=== PATIENT | female | born 1970 | race African-American/Black ===

== ENCOUNTER 2017-03-08 18:35 | Emergency (ER) | payer OTHER ==
--- NOTE | 2017-03-08 19:16 | RADIOLOGY REPORT (SQ) ---
EXAM DESCRIPTION: CHEST SINGLE VIEW COMPLETED DATE/TIME: 03/08/2017 7:09 pm REASON FOR STUDY: chest pain COMPARISON: 07/28/2016 EXAM PARAMETERS: NUMBER OF VIEWS: One view. TECHNIQUE: Single frontal radiographic view of the chest acquired. RADIATION DOSE: NA LIMITATIONS: None. FINDINGS: LUNGS AND PLEURA: No opacities, masses or pneumothorax. No pleural effusion. MEDIASTINUM AND HILAR STRUCTURES: No masses. Contour normal. HEART AND VASCULAR STRUCTURES: Heart normal in size. Normal vasculature. BONES: No acute findings. HARDWARE: None in the chest. OTHER: No other significant finding. IMPRESSION: NO ACUTE RADIOGRAPHIC FINDING IN THE CHEST. TECHNICAL DOCUMENTATION: JOB ID: [id number]
[2017-03-08 19:17] LABS: ABSOLUTE EOSINOPHILS # (AUTO) 0.1 10^3/uL (0.0-0.6); ABSOLUTE MONOCYTES (AUTO) 0.6 10^3/uL (0.1-1.4); ABSOLUTE NEUT (AUTO) 5.5 10^3/uL (1.7-8.2); BASOPHILS % (AUTO) 0.5 % (0-2); EOSINOPHILS % (AUTO) 1.3 % (0-6); HEMATOCRIT 45.1 % (36.0-47.0); HGB HCT DIFFERENCE -0.1; LYMPHOCYTES % (AUTO) 24.2 % (13-45); MEAN CORPUSCULAR HGB CONC 33.2 g/dL (32.0-36.0); MEAN CORPUSCULAR VOLUME 109 fl (80-97); MONOCYTES % (AUTO) 7.6 % (3-13); RED BLOOD COUNT 4.15 10^6/uL (3.72-5.28); RED CELL DISTRIBUTION WIDTH 14.1 % (11.5-14.0); SEGMENTED NEUTROPHILS % (AUTO) 66.4 % (42-78); WHITE BLOOD COUNT 8.3 10^3/uL (4.0-10.5)
[2017-03-08 19:44] LABS: ALANINE AMINOTRANSFERASE 92 U/L (9-52); ALBUMIN 4.7 g/dL (3.5-5.0); ALKALINE PHOSPHATASE 71 U/L (38-126); ANION GAP 13 (5-19); ASPARTATE AMINO TRANSFERASE 148 U/L (14-36); BILIRUBIN,DIRECT 0.5 mg/dL (0.0-0.4); BILIRUBIN,TOTAL 1.5 mg/dL (0.2-1.3); BLOOD UREA NITROGEN 7 mg/dL (7-20); CARBON DIOXIDE 23 mmol/L (22-30); CHLORIDE 103 mmol/L (98-107); GLUCOSE 88 mg/dL (75-110); LIPASE 95.6 U/L (23-300); POTASSIUM 4.1 mmol/L (3.6-5.0); SODIUM 139.1 mmol/L (137-145); TOTAL PROTEIN 8.7 g/dL (6.3-8.2)
[2017-03-08 20:08] LABS: CALCIUM 13.4 mg/dL (8.4-10.2)
--- NOTE | 2017-03-08 20:20 | ER Document Report ---
ED General - General Chief Complaint: Chest Pain Stated Complaint: CHEST PAIN Time Seen by Provider: 03/08/17 19:17 Notes: Patient is a 46-year-old female with past medical history of hypertension, no prior cardiac history, no history of DVT or pulmonary embolus, active smoker who presents with 2 weeks of intermittent chest pain. Does describe it as episodes of chest pain over the left side of her chest wall that are a stabbing , aching pain. States that these episodes of pain tend to be triggered when she is agitated about something. The pain does resolve on its own. She is chest pain-free at the time of my assessment. She has not seen her primary care doctor regarding today's concerns. Denies any associated nausea, vomiting , diaphoresis or shortness of breath. TRAVEL OUTSIDE OF THE [place] IN LAST 30 DAYS: No - Related Data Allergies/Adverse Reactions: erythromycin base [Erythromycin Base] Allergy (Verified 04/18/14 06:04) Past Medical History - General Information source: Patient - Social History Smoking Status: Never Smoker Chew tobacco use (# tins/day): No Drug Abuse: None Lives with: Spouse/Significant other Family History: Reviewed & Not Pertinent Patient has suicidal ideation: No Patient has homicidal ideation: No - Past Medical History Cardiac Medical History: Reports: Hx Hypertension Neurological Medical History: Reports: Hx Migraine Renal/ Medical History: Denies: Hx Peritoneal Dialysis Psychiatric Medical History: Reports: Hx Depression - Immunizations Hx Diphtheria, Pertussis, Tetanus Vaccination: No Review of Systems - Review of Systems Notes: Constitutional: Negative for fever. HENT: Negative for sore throat. Eyes: Negative for visual changes. Cardiovascular: Positive for chest pain. Respiratory: Negative for shortness of breath. Gastrointestinal: Negative for abdominal pain, vomiting or diarrhea. Genitourinary: Negative for dysuria. Musculoskeletal: Negative for back pain. Skin: Negative for rash. Neurological: Negative for headaches, weakness or numbness. 10 point ROS negative except as marked above and in HPI. Physical Exam - Vital signs Vitals: Temp Pulse Resp BP Pulse Ox 97.8 F 101 H 20 150/90 H 97 03/08/17 18:53 03/08/17 18:53 03/08/17 18:53 03/08/17 18:53 03/08/17 18:53 Notes: PHYSICAL EXAMINATION: GENERAL: Well-appearing, well-nourished and in no acute distress. HEAD: Atraumatic, normocephalic. EYES: Pupils equal round and reactive to light, extraocular movements intact, sclera anicteric, conjunctiva are normal. ENT: nares patent, oropharynx clear without exudates. Moist mucous membranes. NECK: Normal range of motion, supple without lymphadenopathy LUNGS: Breath sounds clear to auscultation bilaterally and equal. No wheezes rales or rhonchi. HEART: Regular rate and rhythm without murmurs ABDOMEN: Soft, nontender, normoactive bowel sounds. No guarding, no rebound. No masses appreciated. EXTREMITIES: Normal range of motion, no pitting or edema. No cyanosis. NEUROLOGICAL: No focal neurological deficits. Moves all extremities spontaneously and on command. PSYCH: Normal mood, normal affect. SKIN: Warm, Dry, normal turgor, no rashes or lesions noted. Course - Re-evaluation Re-evalutation: 03/08/17 20:15 Presentation of chest pain in an otherwise well appearing patient. Low clinical suspicion for ACS given clinical history, exam, EKG without ST elevations or depressions, and negative initial troponin. HEART score less than or equal to 3. PE also seems unlikely given clinical history, absence of tachycardia or dyspnea (initial documented HR is not accurate, EKG HR 73 and 84 at time of my assessment). Patient is PERC criteria negative. CXR without evidence of pneumothorax or pneumonia. No widened mediastinum. Aortic dissection also seems unlikely given history, symmetric pulses, CXR, and vitals. HEART Score: History:0 EC Age:1 Risk Factors:1 Troponin:0 Total: 2 2330- Second troponin remains negative. Final assessment: Chest pain in a patient without evidence of cardiac or other serious etiology on workup today. I discussed with patient that, based on their age, risk factors and emergency department testing today, the likelihood that their symptoms are related to a heart attack is very low (estimated risk of heart attack or over the next 30 days of less than 1%). The patient demonstrates decision making capacity and has verbalized an understanding of these risks to me. Based on this, the patient has chosen to follow-up as an outpatient. Usual chest pain return precautions reviewed. The patient states understanding and agreement with this plan. - Vital Signs Vital signs: Temp Pulse Resp BP Pulse Ox 97.8 F 101 H 23 H 128/89 H 89 L 03/08/17 18:53 03/08/17 18:53 03/08/17 23:31 03/08/17 23:31 03/08/17 23:31 - Laboratory Result Diagrams: 03/08/17 19:09 03/08/17 19:09 Laboratory results interpreted by me: 03/08/17 03/08/17 19:09 19:09 MCV 109 H MCH 36.0 H RDW 14.1 H Calcium 13.4 H* Total Bilirubin 1.5 H Direct Bilirubin 0.5 H AST 148 H ALT 92 H Total Protein 8.7 H - Diagnostic Test Radiology reviewed: Image reviewed, Reports reviewed Radiology results interpreted by me: 03/08/17 20:19 Chest x-ray: No wide mediastinum, pneumothorax or infiltrate - EKG Interpretation by Me Additional EKG results interpreted by me: 03/09/17 03:26 Normal sinus rhythm. Rate 73. No ST elevations or depressions. QTC is 388. Discharge - Discharge Clinical Impression: Hypercalcemia Chest pain Qualifiers: Chest pain type: unspecified Qualified Code(s): R07.9 - Chest pain, unspecified Condition: Good Disposition: HOME, SELF-CARE Additional Instructions: You were seen today for chest pain. The exact cause of your pain is unclear. However, based on your cardiac enzyme testing, chest x-ray, and EKG it does not appear that it is from an immediately life-threatening cause at this time. Although your testing here is normal is critical that you follow-up with your primary care physician for continued evaluation of this chest pain and possible stress testing. I recommended you see your physician within the next 24-48 hours to be evaluated for consideration of a stress test. Please return to emergency department immediately if you have worsening of your chest pain, shortness of breath, vomiting, become unable to exert yourself due to pain or difficulty breathing, you pass out, or have any pain that radiates into your arms, jaw, or back. Please also return if you have any additional symptoms that are concerning to you. Please also follow-up with your primary care doctor regarding your chronically elevated calcium level.
[2017-03-08 23:39] VITALS: BP 128/89
--- NOTE | 2017-03-08 23:44 | EKG REPORT ---
SEVERITY:- BORDERLINE ECG - SINUS RHYTHM BORDERLINE R WAVE PROGRESSION, ANTERIOR LEADS : Confirmed by: Monica Garcia 08-Mar-2017 23:44:07
--- NOTE | 2017-03-08 23:45 | EKG REPORT ---
SEVERITY:- BORDERLINE ECG - SINUS RHYTHM LOW VOLTAGE IN FRONTAL LEADS BORDERLINE R WAVE PROGRESSION, ANTERIOR LEADS : Confirmed by: Monica Garcia 08-Mar-2017 23:44:18
== END 2017-03-08 23:55 | disposition home or self-care (01) ==
LOC: ER 18:35
DX: E83.52 Hypercalcemia (principal); R07.9 Chest pain, unspecified; I10 Essential (primary) hypertension; Z88.3 Allergy status to other anti-infective agents
CPT/HCPCS: 36415; 71010; 80053; 83690; 84484; 85025; 93005; 93010; 99285

== ENCOUNTER 2017-10-24 20:33 | Emergency (ER) | payer OTHER ==
[2017-10-24 20:52] VITALS: BP 159/101
[2017-10-24] MEDS ORDERED: ACETAMINOPHEN 325 MG TABLET PO ONE (23:31)
--- NOTE | 2017-10-24 23:32 | ER Document Report ---
HPI - HPI Patient complains to provider of: Fever, cough Pain Level: 4 Context: Patient is a 47-year-old female who comes emergency department for chief complaint of 1 week of cold symptoms, she states she feels like she is getting worse, she is coughing up brownish and whitish sputum, she is beginning to run fevers and have chills. She denies shortness of breath although she states she felt like she was wheezing intermittently. She denies sinus pain, significant congestion, states her throat is only mildly sore. She smokes intermittently, she denies any daily medications. LMP within the past month. - CONSTITUTIONAL Constitutional: REPORTS: Fever, Chills - NEURO Neurology: REPORTS: Headache - CARDIOVASCULAR Cardiovascular: REPORTS: Chest pain - RESPIRATORY Respiratory: REPORTS: Coughing - REPRODUCTIVE Reproductive: DENIES: : Past Medical History - General Information source: Patient - Social History Smoking Status: Current Every Day Smoker Chew tobacco use (# tins/day): No Smoking Education Provided: Yes - <3 min Frequency of alcohol use: Social Drug Abuse: None Lives with: Family Family History: Reviewed & Not Pertinent Patient has suicidal ideation: No Patient has homicidal ideation: No - Past Medical History Cardiac Medical History: Reports: Hx Hypertension Neurological Medical History: Reports: Hx Migraine Renal/ Medical History: Denies: Hx Peritoneal Dialysis Psychiatric Medical History: Reports: Hx Depression - Immunizations Hx Diphtheria, Pertussis, Tetanus Vaccination: No Vertical Provider Document - INFECTION CONTROL TRAVEL OUTSIDE OF THE [place] IN LAST 30 DAYS: No - HEENT HEENT: Atraumatic, Normal ENT Exam, Normocephalic - NECK Neck: Normal Inspection - RESPIRATORY Respiratory: negative: Breath Sounds Normal - A few scattered coarse breath sounds, no overt wheezing, rales, or rhonchi. No tachypnea or labored breathing O2 Sat by Pulse Oximetry: 99 - CARDIOVASCULAR Cardiovascular: Regular Rate, Regular Rhythm - GI/ABDOMEN Gastrointestinal: Abdomen Soft, Abdomen Non-Tender - BACK Back: Normal Inspection - MUSCULOSKELETAL/EXTREMETIES Musculoskeletal/Extremeties: MAEW, FROM, Non-Tender - NEURO Level of Consciousness: Awake, Alert, Appropriate - DERM Integumentary: Warm, Dry, No Rash Course - Re-evaluation Re-evalutation: Chest x-ray unremarkable, however patient has had cold symptoms for a week, she now has some scattered coarse breath sounds on exam, developing fever, worsening cough, but no wheezing, rales, or hypoxia. No respiratory distress. Concern is for developing pneumonia. Patient will be covered for this. She states that she had some wheezing intermittently before, she was provided with prednisone. Discussed follow-up, smoking cessation, return precautions in detail. Patient states satisfaction and agreement with plan. Unfortunately vital signs were not repeated before discharge and I was not notified, however on my reexamination patient was unchanged from prior except that she no longer had any complaints except for an occasional congested cough. - Vital Signs Vital signs: Temp Pulse Resp BP Pulse Ox 100.7 F H 100 16 159/101 H 99 10/24/17 20:50 10/24/17 20:50 10/24/17 20:50 10/24/17 20:50 10/24/17 20:50 Discharge - Discharge Clinical Impression: Cough Fever Qualifiers: Fever type: unspecified Qualified Code(s): R50.9 - Fever, unspecified Condition: Stable Disposition: HOME, SELF-CARE Additional Instructions: Your x-ray does not show any concerning findings, but your examination and symptoms are consistent with a developing pneumonia. Take doxycycline antibiotic as directed, take prednisone as directed, take Tessalon if needed for cough, take ibuprofen or Tylenol for fever, drink plenty fluids and rest. Follow-up with primary care. Stop smoking. Return if you worsen including difficulty breathing, spiking fever, etc. Prescriptions: Benzonatate [Tessalon Perle 100 mg Capsule] 100 mg PO Q8HP PRN #20 cap PRN Reason: Doxycycline Hyclate 100 mg PO BID #14 capsule Prednisone [Deltasone 10 mg Tablet] 10 mg PO ASDIR PRN #21 tablet PRN Reason: Forms: Return to Work
--- NOTE | 2017-10-25 00:33 | RADIOLOGY REPORT (SQ) ---
EXAM DESCRIPTION: CHEST PA/LAT CLINICAL HISTORY: 47 years, Female, fever, worsening cough COMPARISON: 03/08/2017. FINDINGS: Normal lung volume, clear parenchyma, normal cardiac silhouette, mild osteoarthritis, and mild dextroconvexity. IMPRESSION: No acute cardiopulmonary findings.
[2017-10-25] MEDS ORDERED: DOXYCYCLINE HYCLATE 100 MG TABLET PO ONE (01:03)
[2017-10-25] MEDS ORDERED: BENZONATATE 100 MG CAPSULE PO ONE (01:04)
== END 2017-10-25 01:35 | disposition home or self-care (01) ==
LOC: ER 20:33
DX: R50.9 Fever, unspecified (principal); R05 Cough; J02.9 Acute pharyngitis, unspecified; F17.200 Nicotine dependence, unspecified, uncomplicated
CPT/HCPCS: 71046; 99283

== ENCOUNTER 2018-01-12 17:42 | Emergency (ER) | payer OTHER ==
[2018-01-12] MEDS ORDERED: ASPIRIN 81 MG TABLET, CHEWABLE PO ONE (18:33)
[2018-01-12 19:04] LABS: ABSOLUTE LYMPHOCYTES (AUTO) 1.5 10^3/uL (0.5-4.7); ABSOLUTE MONOCYTES (AUTO) 0.6 10^3/uL (0.1-1.4); BASOPHILS % (AUTO) 0.5 % (0-2); EOSINOPHILS % (AUTO) 0.6 % (0-6); HEMATOCRIT 42.9 % (36.0-47.0); HEMOGLOBIN 14.4 g/dL (12.0-15.5); LYMPHOCYTES % (AUTO) 18.4 % (13-45); MEAN CORPUSCULAR HEMOGLOBIN 34.5 pg (27.0-33.4); MEAN CORPUSCULAR HGB CONC 33.6 g/dL (32.0-36.0); MEAN CORPUSCULAR VOLUME 103 fl (80-97); MONOCYTES % (AUTO) 6.8 % (3-13); PLATELET COUNT 316 10^3/uL (150-450); RED BLOOD COUNT 4.18 10^6/uL (3.72-5.28); RED CELL DISTRIBUTION WIDTH 14.7 % (11.5-14.0); SEGMENTED NEUTROPHILS % (AUTO) 73.7 % (42-78); TOTAL CELLS COUNTED % (AUTO) 100 %; WHITE BLOOD COUNT 8.2 10^3/uL (4.0-10.5)
--- NOTE | 2018-01-12 19:04 | RADIOLOGY REPORT (SQ) ---
EXAM DESCRIPTION: CHEST SINGLE VIEW COMPLETED DATE/TIME: 01/12/2018 6:54 pm REASON FOR STUDY: chest pain COMPARISON: 10/25/2017 EXAM PARAMETERS: NUMBER OF VIEWS: One view. TECHNIQUE: Single frontal radiographic view of the chest acquired. RADIATION DOSE: NA LIMITATIONS: None. FINDINGS: LUNGS AND PLEURA: No opacities, masses or pneumothorax. No pleural effusion. MEDIASTINUM AND HILAR STRUCTURES: No masses. Contour normal. HEART AND VASCULAR STRUCTURES: Heart normal in size. Normal vasculature. BONES: No acute findings. HARDWARE: None in the chest. OTHER: No other significant finding. IMPRESSION: NO ACUTE RADIOGRAPHIC FINDING IN THE CHEST. TECHNICAL DOCUMENTATION: JOB ID: [id number] [employer]- All Rights Reserved Reading location - IP/workstation name: [email or web address]
[2018-01-12 19:19] LABS: ALANINE AMINOTRANSFERASE 31 U/L (9-52); ALBUMIN 4.4 g/dL (3.5-5.0); ALKALINE PHOSPHATASE 54 U/L (38-126); ANION GAP 14 (5-19); ASPARTATE AMINO TRANSFERASE 31 U/L (14-36); BILIRUBIN,DIRECT 0.3 mg/dL (0.0-0.4); BILIRUBIN,TOTAL 0.8 mg/dL (0.2-1.3); BLOOD UREA NITROGEN 7 mg/dL (7-20); CALCIUM 11.4 mg/dL (8.4-10.2); CARBON DIOXIDE 23 mmol/L (22-30); CHLORIDE 103 mmol/L (98-107); CREATINE KINASE 92 U/L (30-135); GLUCOSE 96 mg/dL (75-110); POTASSIUM 4.1 mmol/L (3.6-5.0); SODIUM 140.1 mmol/L (137-145); TOTAL PROTEIN 7.9 g/dL (6.3-8.2)
[2018-01-12 19:31] LABS: CREATINE KINASE MB 1.22 ng/mL (<4.55)
[2018-01-12 19:32] LABS: TROPONIN I < 0.012 ng/mL
--- NOTE | 2018-01-12 19:45 | ER Document Report ---
ED General - General Chief Complaint: Chest Pain Stated Complaint: CHEST PAIN Time Seen by Provider: 01/12/18 18:43 Mode of Arrival: Ambulatory Information source: Patient Notes: 47-year-old female history of anxiety panic attacks presents with complaints of sudden episode of left facial left arm numbness associated with palpitations. Patient notes she has panic attacks often notes the symptoms worsen when she got to work and that she is under a lot of stress patient notes symptoms have since resolved TRAVEL OUTSIDE OF THE [place] IN LAST 30 DAYS: No - HPI Onset: Just prior to arrival Onset/Duration: Sudden Quality of pain: Achy Severity: Mild Pain Level: 1 Associated symptoms: Weakness, Other Exacerbated by: Denies Relieved by: Denies Similar symptoms previously: No Recently seen / treated by doctor: No - Related Data Allergies/Adverse Reactions: erythromycin base [Erythromycin Base] Allergy (Verified 01/12/18 18:44) Past Medical History - Social History Smoking Status: Current Every Day Smoker Cigarette use (# per day): Yes Chew tobacco use (# tins/day): No Smoking Education Provided: No Frequency of alcohol use: Heavy Drug Abuse: Marijuana Family History: Reviewed & Not Pertinent Patient has suicidal ideation: No Patient has homicidal ideation: No - Past Medical History Cardiac Medical History: Reports: Hx Hypertension - has not taken meds in months Neurological Medical History: Reports: Hx Migraine Renal/ Medical History: Denies: Hx Peritoneal Dialysis Psychiatric Medical History: Reports: Hx Depression - Immunizations Hx Diphtheria, Pertussis, Tetanus Vaccination: No Review of Systems - Review of Systems Notes: REVIEW OF SYSTEMS: CONSTITUTIONAL : Denies fever, chills, or sweats. Denies recent illness. EENT: Denies eye, ear, throat, or mouth pain or symptoms. Denies nasal or sinus congestion or discharge. Denies throat, tongue, or mouth swelling or difficulty swallowing. CARDIOVASCULAR: Admits to chest pain RESPIRATORY: Denies cough, cold, or chest congestion. Denies shortness of breath, difficulty breathing, or wheezing. GASTROINTESTINAL: Denies abdominal pain or distention. Denies nausea, vomiting , or diarrhea. Denies blood in vomitus, stools, or per rectum. Denies black, tarry stools. Denies constipation. GENITOURINARY: Denies difficulty urinating, painful urination, burning, frequency, blood in urine, or discharge. FEMALE GENITOURINARY: Denies vaginal bleeding, heavy or abnormal periods, irregular periods. Denies vaginal discharge or odor. MUSCULOSKELETAL: Denies back or neck pain or stiffness. Denies joint pain or swelling. SKIN: Denies rash, lesions or sores. HEMATOLOGIC : Denies easy bruising or bleeding. LYMPHATIC: Denies swollen, enlarged glands. NEUROLOGICAL: Admits to numbness sensation left side PSYCHIATRIC: Admits to stress and anxiety ALL OTHER SYSTEMS REVIEWED AND NEGATIVE. PHYSICAL EXAMINATION: GENERAL: Well-appearing, well-nourished and in no acute distress. HEAD: Atraumatic, normocephalic. EYES: Pupils equal round and reactive to light, extraocular movements intact, conjunctiva are normal. ENT: Nares patent, oropharynx clear without exudates. Moist mucous membranes. NECK: Normal range of motion, supple without lymphadenopathy LUNGS: Breath sounds clear to auscultation bilaterally and equal. No wheezes rales or rhonchi. HEART: Regular rate and rhythm without murmurs ABDOMEN: Soft, nontender, nondistended abdomen. No guarding, no rebound. No masses appreciated. Female : deferred Musculoskeletal: Normal range of motion, no pitting or edema. No cyanosis. NEUROLOGICAL: Cranial nerves grossly intact. Normal speech, normal gait. Normal sensory, motor exams PSYCH: Extremely anxious SKIN: Warm, Dry, normal turgor, no rashes or lesions noted. Dictation was performed using [employer] voice recognition software Physical Exam - Vital signs Vitals: Temp Pulse Resp BP Pulse Ox 99.5 F 78 18 169/105 H 99 01/12/18 18:09 01/12/18 18:09 01/12/18 18:09 01/12/18 18:09 01/12/18 18:09 Course - Re-evaluation Re-evalutation: 01/12/18 19:45 Patient notes when the symptoms occurred she started having tingling sensations started shaking, she started to have palpitations. Symptoms are most consistent with a panic attack, nonetheless cardiac workup CT of the head is pending 01/13/18 02:06 CT imaging lab work noted no significant abnormality, patient believes her symptoms are related to a panic attack, I will treat her as such however I have explained that while anxiety panic attack appears to be the source of her symptoms that she must follow-up with neurology for further evaluation possible TIA which we would not be able to see on a CT imaging. Patient states she understands and will return if there are any other After performing a Medical Screening Examination, I estimate there is LOW risk for ACUTE GLAUCOMA, TEMPORAL ARTERITIS, MENINGITIS, INCRANIAL HEMORRHAGE, or ISCHEMIC STROKE thus I consider the discharge disposition reasonable. I have reevaluated this patient multiple times and no significant life threatening changes are noted. The patient and I have discussed the diagnosis and risks, and we agree with discharging home with close follow-up with the understanding that symptoms and presentations can change. We also discussed returning to the Emergency Department immediately if new or worsening symptoms occur. We have discussed the symptoms which are most concerning (e.g., changing or worsening symptoms, new numbness or weakness, vomiting, fever) that necessitate immediate return. - Vital Signs Vital signs: Temp Pulse Resp BP Pulse Ox 99.5 F 78 22 H 172/100 H 94 01/12/18 18:09 01/12/18 18:09 01/12/18 21:01 01/12/18 21:00 01/12/18 20:31 - Laboratory Result Diagrams: 01/12/18 18:42 01/12/18 18:42 Laboratory results interpreted by me: 01/12/18 01/12/18 18:42 18:42 MCV 103 H MCH 34.5 H RDW 14.7 H Calcium 11.4 H - Diagnostic Test Radiology reviewed: Image reviewed - CT head without contrast notes no acute abnormality, Reports reviewed Discharge - Discharge Clinical Impression: Panic attack HTN (hypertension) Qualifiers: Hypertension type: essential hypertension Qualified Code(s): I10 - Essential ( primary) hypertension Condition: Stable Disposition: HOME, SELF-CARE Instructions: Panic Attack ([facility]) Referrals: NICHOLAS DALY MD [EMERITUS] - Follow up tomorrow
--- NOTE | 2018-01-12 20:25 | RADIOLOGY REPORT (SQ) ---
EXAM DESCRIPTION: CT HEAD WITHOUT COMPLETED DATE/TIME: 01/12/2018 7:57 pm REASON FOR STUDY: left facial numbness COMPARISON: None. TECHNIQUE: Axial images acquired through the brain without intravenous contrast. Images reviewed wi th bone, brain and subdural windows. Additional sagittal and coronal reconstructions were generated. Images stored on PACS. All CT scanners at this facility use dose modulation, iterative reconstruction, and/or weight based d osing when appropriate to reduce radiation dose to as low as reasonably achievable (ALARA). [facility]: Dose Right [facility]: CareDose [facility]: Dose Right [facility]: Teradose 4D [facility]: Smart Gremln RADIATION DOSE: CT Rad equipment meets quality standard of care and radiation dose reduction techniq ues were employed. CTDIvol: 53.2 mGy. DLP: 1017 mGy-cm. mGy. LIMITATIONS: None. FINDINGS: VENTRICLES: Normal size and contour. CEREBRUM: No masses. No hemorrhage. No midline shift. No evidence for acute infarction. Normal gra y/white matter differentiation. No areas of low density in the white matter. CEREBELLUM: No masses. No hemorrhage. No alteration of density. No evidence for acute infarction. EXTRAAXIAL SPACES: No fluid collections. No masses. ORBITS AND GLOBE: No intra- or extraconal masses. Normal contour of globe without masses. CALVARIUM: No fracture. PARANASAL SINUSES: No fluid or mucosal thickening. SOFT TISSUES: No mass or hematoma. OTHER: No other significant finding. IMPRESSION: NORMAL BRAIN CT WITHOUT CONTRAST. EVIDENCE OF ACUTE STROKE: NO. COMMENT: Quality ID # [id number]: Final reports with documentation of one or more dose reduction techniques (e.g., Automated exposure control, adjustment of the mA and/or kV according to patient size, use of iterative reconstruction technique) TECHNICAL DOCUMENTATION: JOB ID: [id number] [employer]- All Rights Reserved Reading location - IP/workstation name: [email or web address]
[2018-01-12 21:05] VITALS: BP 172/100
--- NOTE | 2018-01-12 23:40 | EKG REPORT ---
SEVERITY:- BORDERLINE ECG - SINUS RHYTHM BORDERLINE R WAVE PROGRESSION, ANTERIOR LEADS : Confirmed by: Monica Garcia 12-Jan-2018 23:39:58
== END 2018-01-12 21:05 | disposition home or self-care (01) ==
LOC: ER 17:42
DX: F41.0 Panic disorder [episodic paroxysmal anxiety] (principal); I10 Essential (primary) hypertension; R07.9 Chest pain, unspecified; R20.0 Anesthesia of skin; R00.2 Palpitations; F17.210 Nicotine dependence, cigarettes, uncomplicated; Z88.3 Allergy status to other anti-infective agents
CPT/HCPCS: 36415; 70450; 71045; 80053; 82550; 82553; 84484; 85025; 93005; 93010; 99285

== ENCOUNTER 2018-03-06 09:37 | Emergency (ER) | payer OTHER ==
[2018-03-06] MEDS ORDERED: NORMAL SALINE 1000 ML 1,000 ML IV ONE (09:49)
[2018-03-06] MEDS ORDERED: ONDANSETRON HCL INJ/PF 4 MG/2 ML SDV IV ONE (09:49)
--- NOTE | 2018-03-06 09:51 | ER Document Report ---
ED Medical Screen (RME) - General Chief Complaint: Nausea Stated Complaint: NAUSEA/LOSS OF APPETITE Time Seen by Provider: 03/06/18 09:45 Mode of Arrival: Ambulatory Information source: Patient Notes: 87-year-old female presents to ED for complaint of nausea vomiting decreased appetite. She states she has been fatigued. She has not seen her primary care doctor. She states she has vomited once today and twice yesterday. She has cramping in her lower abdomen and suprapubic area. She states her last menstrual period was February 24. Has a history of high blood pressure. She smokes 5 cigarettes a day alcohol every other day does smoke pot works in housekeeping. Lungs clear abdomen soft tenderness to the suprapubic and lower abdomen. CBC chemistry and urine will be ordered as well as some IV fluid and Zofran. I have greeted and performed a rapid initial assessment of this patient. A comprehensive ED assessment and evaluation of the patient, analysis of test results and completion of medical decision making process will be conducted by an additional ED providers. TRAVEL OUTSIDE OF THE [place] IN LAST 30 DAYS: No - Related Data Allergies/Adverse Reactions: erythromycin base [Erythromycin Base] Allergy (Verified 03/06/18 09:38) Past Medical History - Past Medical History Cardiac Medical History: Reports: Hx Hypertension - has not taken meds in months Neurological Medical History: Reports: Hx Migraine Renal/ Medical History: Denies: Hx Peritoneal Dialysis Psychiatric Medical History: Reports: Hx Depression - Immunizations Hx Diphtheria, Pertussis, Tetanus Vaccination: No Physical Exam - Vital signs Vitals: Temp Pulse Resp BP Pulse Ox 98.2 F 75 16 154/99 H 97 03/06/18 09:43 03/06/18 09:43 03/06/18 09:43 03/06/18 09:43 03/06/18 09:43 Course - Vital Signs Vital signs: Temp Pulse Resp BP Pulse Ox 98.2 F 75 16 154/99 H 97 03/06/18 09:43 03/06/18 09:43 03/06/18 09:43 03/06/18 09:43 03/06/18 09:43
[2018-03-06 10:41] LABS: ABSOLUTE EOSINOPHILS # (AUTO) 0.1 10^3/uL (0.0-0.6); ABSOLUTE LYMPHOCYTES (AUTO) 1.8 10^3/uL (0.5-4.7); ABSOLUTE MONOCYTES (AUTO) 0.4 10^3/uL (0.1-1.4); ABSOLUTE NEUT (AUTO) 3.9 10^3/uL (1.7-8.2); BASOPHILS % (AUTO) 0.7 % (0-2); EOSINOPHILS % (AUTO) 0.8 % (0-6); HEMATOCRIT 44.2 % (36.0-47.0); HEMOGLOBIN 15.2 g/dL (12.0-15.5); LYMPHOCYTES % (AUTO) 28.7 % (13-45); MEAN CORPUSCULAR HEMOGLOBIN 36.4 pg (27.0-33.4); MEAN CORPUSCULAR HGB CONC 34.4 g/dL (32.0-36.0); MEAN CORPUSCULAR VOLUME 106 fl (80-97); MONOCYTES % (AUTO) 6.2 % (3-13); PLATELET COUNT 180 10^3/uL (150-450); RED BLOOD COUNT 4.18 10^6/uL (3.72-5.28); RED CELL DISTRIBUTION WIDTH 16.9 % (11.5-14.0); SEGMENTED NEUTROPHILS % (AUTO) 63.6 % (42-78); TOTAL CELLS COUNTED % (AUTO) 100 %; WHITE BLOOD COUNT 6.2 10^3/uL (4.0-10.5)
[2018-03-06 10:56] LABS: BACTERIA (WET MOUNT) 3+ BACTERIA SEEN; EPITHELIALS (WET MOUNT) 3+ EPITHELIALS SEEN; T.VAGINALIS (WET MOUNT) NO TRICHOMONAS SEEN; WBCS (WET MOUNT) NO WBCS SEEN; YEAST (WET MOUNT) NO YEAST SEEN
[2018-03-06 11:03] LABS: ALANINE AMINOTRANSFERASE 162 U/L (9-52); ALBUMIN 4.5 g/dL (3.5-5.0); ALKALINE PHOSPHATASE 194 U/L (38-126); ANION GAP 13 (5-19); ASPARTATE AMINO TRANSFERASE 243 U/L (14-36); BILIRUBIN,DIRECT 2.4 mg/dL (0.0-0.4); BLOOD UREA NITROGEN 5 mg/dL (7-20); CALCIUM 11.8 mg/dL (8.4-10.2); CARBON DIOXIDE 28 mmol/L (22-30); CHLORIDE 99 mmol/L (98-107); GLUCOSE 99 mg/dL (75-110); POTASSIUM 3.7 mmol/L (3.6-5.0)
--- NOTE | 2018-03-06 11:07 | ER Document Report ---
ED GI/ - General Chief Complaint: Nausea Stated Complaint: NAUSEA/LOSS OF APPETITE Time Seen by Provider: 03/06/18 09:45 Mode of Arrival: Ambulatory Information source: Patient Notes: 47-year-old daily large quantity alcohol use for 20 years, smoker, female with a history of hypertension that has been untreated for a year, PCP: [facility], complaining of fatigue and nausea for 2 weeks. She also has some suprapubic pelvic discomfort with dyspareunia. History of chlamydia in 1988, her vaginal discharge is increased with a fishy odor. No dysuria or fever. No history of pancreatitis or cirrhosis. Denies any sexual partner but wants to be treated for STDs just in case. TRAVEL OUTSIDE OF THE [place] IN LAST 30 DAYS: No - Related Data Allergies/Adverse Reactions: erythromycin base [Erythromycin Base] Allergy (Verified 03/06/18 09:38) Past Medical History - General Information source: Patient - Social History Smoking Status: Current Every Day Smoker Chew tobacco use (# tins/day): No Frequency of alcohol use: every other day Drug Abuse: Marijuana Lives with: Family Family History: Reviewed & Not Pertinent Patient has suicidal ideation: No Patient has homicidal ideation: No - Past Medical History Cardiac Medical History: Reports: Hx Hypertension - has not taken meds in months Neurological Medical History: Reports: Hx Migraine Renal/ Medical History: Denies: Hx Peritoneal Dialysis Psychiatric Medical History: Reports: Hx Depression Surgical Hx: Negative - Immunizations Hx Diphtheria, Pertussis, Tetanus Vaccination: No Review of Systems - Review of Systems Constitutional: See HPI EENT: No symptoms reported Cardiovascular: No symptoms reported Respiratory: No symptoms reported Gastrointestinal: See HPI Genitourinary: No symptoms reported Female Genitourinary: No symptoms reported Musculoskeletal: No symptoms reported Skin: No symptoms reported Hematologic/Lymphatic: No symptoms reported Neurological/Psychological: No symptoms reported Physical Exam - Vital signs Vitals: Temp Pulse Resp BP Pulse Ox 98.2 F 75 16 154/99 H 97 03/06/18 09:43 03/06/18 09:43 03/06/18 09:43 03/06/18 09:43 03/06/18 09:43 Interpretation: Normal - General General appearance: Appears well, Alert - HEENT Head: Normocephalic, Atraumatic Eyes: Normal. No: Scleral icterus Pupils: PERRL Mucous membranes: Normal Pharynx: Normal Neck: Supple. No: Lymphadenopathy - Respiratory Respiratory status: No respiratory distress Chest status: Nontender Breath sounds: Normal Chest palpation: Normal - Cardiovascular Rhythm: Regular Heart sounds: Normal auscultation Murmur: No - Abdominal Inspection: Normal Distension: No distension Bowel sounds: Normal Tenderness: Nontender. No: Tender Organomegaly: No organomegaly - Back Back: Normal, Nontender. No: CVA tenderness - Extremities General upper extremity: Normal inspection, Nontender, Normal color, Normal ROM , Normal temperature General lower extremity: Normal inspection, Nontender, Normal color, Normal ROM , Normal temperature, Normal weight bearing. No: Quincy's sign - Neurological Neuro grossly intact: Yes Cognition: Normal Orientation: AAOx4 Dyan Coma Scale Eye Opening: Spontaneous Dyan Coma Scale Verbal: Oriented Dyan Coma Scale Motor: Obeys Commands [place] Coma Scale Total: 15 Speech: Normal Motor strength normal: LUE, RUE, LLE, RLE Sensory: Normal - Psychological Associated symptoms: Normal affect, Normal mood - Skin Skin Temperature: Warm Skin Moisture: Dry Skin Color: Normal Skin irregularity: negative: Rash Course - Re-evaluation Re-evalutation: 03/06/18 21:58 discussed labs with pt, her need for follow up GI, no alcohol/tylenol and hep panel pending. Tx for possible UTI (cx pending) and BV. - Vital Signs Vital signs: Temp Pulse Resp BP Pulse Ox 98.8 F 69 16 147/90 H 98 03/06/18 13:28 03/06/18 13:28 03/06/18 13:28 03/06/18 13:28 03/06/18 13:28 - Laboratory Result Diagrams: 03/06/18 10:20 03/06/18 10:20 Laboratory results interpreted by me: 03/06/18 03/06/18 03/06/18 10:20 10:20 10:20 MCV 106 H MCH 36.4 H RDW 16.9 H BUN 5 L Calcium 11.8 H Total Bilirubin 4.0 H Direct Bilirubin 2.4 H AST 243 H ALT 162 H Alkaline Phosphatase 194 H Total Protein 9.0 H Lipase Urine Protein >=500 H Urine Blood SMALL H Urine Bilirubin SMALL H Urine Urobilinogen 4.0 H 03/06/18 10:20 MCV MCH RDW BUN Calcium Total Bilirubin Direct Bilirubin AST ALT Alkaline Phosphatase Total Protein Lipase 363.7 H Urine Protein Urine Blood Urine Bilirubin Urine Urobilinogen Discharge - Discharge Clinical Impression: Nausea, Elevated liver enzymes, Heavy alcohol use, Bronchitis Fatigue Qualifiers: Fatigue type: unspecified Qualified Code(s): R53.83 - Other fatigue Urinary tract infection Qualifiers: Urinary tract infection type: site unspecified Hematuria presence: with hematuria Qualified Code(s): N39.0 - Urinary tract infection, site not specified Condition: Stable Disposition: HOME, SELF-CARE Instructions: Cephalexin ([facility]), Chronic Alcoholism ([facility]), Inhaled Bronchodilators ([facility]), Liver Function Abnormality ([facility]), Metronidazole ([facility]), Urinary Tract Infection ([facility]), Vaginosis, Bacterial ([facility]) Additional Instructions: No alcohol stop smokine use the albuteral inhaler 2 puffs every 4 hours for cough No Tylenol Hepatitis profile is pending, this may be viral hapatitis The gonorrhea and chlamydia STD testing are negative Flagyl for bacterial vaginosis twice a day for a week Referral to chief building inspector for the liver Return to the emergency room if symptoms worsen Prescriptions: Albuterol Sulfate [Proair HFA Inhalation Aerosol 8.5 gm MDI] 2 puff IH Q3HP PRN #1 [id number] PRN Reason: Cephalexin Monohydrate [Keflex 500 mg Capsule] 500 mg PO QID #28 capsule Metronidazole [Flagyl 500 mg Tablet] 500 mg PO BID #14 tablet Forms: Return to Work Referrals: SUZY MALDONADO MD [ACTIVE STAFF] - Follow up as needed
[2018-03-06] MEDS ORDERED: IPRATROPIUM/ALBUTEROL 0.5-2.5 MG/3 ML AMPUL NEB ONE (11:17)
[2018-03-06] MEDS ORDERED: CEFTRIAXONE INJ 250 MG VIAL IV ONE (11:21)
[2018-03-06] MEDS ORDERED: DOXYCYCLINE HYCLATE 100 MG TABLET PO ONE (11:21)
[2018-03-06] MEDS ORDERED: LIDOCAINE 1% INJ-PF (10 MG/ML) 30 ML SDV INFIL ONE (11:21)
[2018-03-06 11:24] LABS: AMORPHOUS SEDIMENT,URINE 1+ /HPF; APPEARANCE,URINE CLOUDY; BILIRUBIN,URINE SMALL (NEGATIVE); GLUCOSE, URINE NEGATIVE (NEGATIVE); KETONES,URINE NEGATIVE (NEGATIVE); LEUKOCYTE ESTERASE,URINE NEGATIVE (NEGATIVE); NITRITE,URINE NEGATIVE (NEGATIVE); PROTEIN,URINE >=500 mg/dL (NEGATIVE); URINE SPECIFIC GRAVITY 1.023
[2018-03-06 11:26] LABS: COLOR,URINE DARK YELLOW
--- NOTE | 2018-03-06 12:22 | RADIOLOGY REPORT (SQ) ---
EXAM DESCRIPTION: U/S ABDOMEN LIMITED W/O DOP COMPLETED DATE/TIME: 03/06/2018 12:04 pm REASON FOR STUDY: Elevated liver enzymes and bilirubin COMPARISON: August 2015 TECHNIQUE: Dynamic and static grayscale images acquired of the abdomen and recorded on PACS. Sanchoo beto selected color Doppler and spectral images recorded. LIMITATIONS: None. FINDINGS: PANCREAS: No masses. No peripancreatic edema or fluid collections. LIVER: Echotexture is coarse with increased echogenicity consistent with fatty infiltration. LIVER VASCULATURE: Normal directional flow of the main portal vein. GALLBLADDER: No stones. Normal wall thickness. No pericholecystic fluid. ULTRASOUND-DETECTED HINES'S SIGN: Negative. INTRAHEPATIC DUCTS AND COMMON DUCT: CBD and intrahepatic ducts normal caliber. No filling defects. INFERIOR VENA CAVA: Normal flow. AORTA: No aneurysm RIGHT KIDNEY: 10.7 cm in length. Normal echogenicity. No solid or suspicious masses. No hydronephro sis. No calcifications. PERITONEAL AND RIGHT PLEURAL SPACE: No ascites or effusions. OTHER: No other significant finding. IMPRESSION: FATTY INFILTRATION OF THE LIVER. No other significant findings. TECHNICAL DOCUMENTATION: JOB ID: [id number] [employer]- All Rights Reserved Reading location - IP/workstation name: [email or web address]
[2018-03-06 12:26] LABS: CHLAM PCR NOT DETECTED (NOT DETECT); GON PCR NOT DETECTED (NOT DETECT)
[2018-03-06] MEDS ORDERED: CEFTRIAXONE INJ 1000 MG VIAL IV ONE (12:49)
[2018-03-06 13:29] VITALS: BP 147/90
[2018-03-07 06:38] LABS: HEPATITIS A AB IGM Negative (Negative); HEPATITIS B CORE AB IGM Negative (Negative); HEPATITS B SURFACE ANTIGEN Negative (Negative)
[2018-03-07 07:22] LABS: HEPATITIS C VIRUS ANTIBODY <0.1 s/co ratio (0.0-0.9)
== END 2018-03-06 14:17 | disposition home or self-care (01) ==
LOC: ER 09:37
DX: N39.0 Urinary tract infection, site not specified (principal); J40 Bronchitis, not specified as acute or chronic; N76.0 Acute vaginitis; B96.89 Other specified bacterial agents as the cause of diseases classified elsewhere; R74.8 Abnormal levels of other serum enzymes; R11.0 Nausea; R53.83 Other fatigue; I10 Essential (primary) hypertension; N94.10 Unspecified dyspareunia; F12.10 Cannabis abuse, uncomplicated; F17.200 Nicotine dependence, unspecified, uncomplicated; Z88.1 Allergy status to other antibiotic agents; Z72.89 Other problems related to lifestyle
CPT/HCPCS: 99284; 96361; 96365; 36415; 87086; 87210; 83690; 84703; 85025; 80053; 81001; 87491; 87591; 80074; 76705; J7030; J0696; J7620

== ENCOUNTER 2019-05-12 03:29 | Emergency (ER) | payer SELFPAY ==
[2019-05-12] MEDS ORDERED: ONDANSETRON 4 MG TAB.RAPDIS ONE (03:49)
[2019-05-12] MEDS ORDERED: OXYCODONE-ACETAMINOPHEN 5-325 MG TABLET ONE (03:49)
[2019-05-12] MEDS ORDERED: ONDANSETRON 4 MG TAB.RAPDIS PO ONE (03:50)
[2019-05-12] MEDS ORDERED: OXYCODONE-ACETAMINOPHEN 5-325 MG TABLET PO ONE (03:50)
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
[2019-05-12 06:02] VITALS: BP 137/92
== END 2019-05-12 06:01 | disposition home or self-care (01) ==
LOC: ER 03:29
DX: S06.0X1A Concussion with loss of consciousness of 30 minutes or less, initial encounter (principal); R55 Syncope and collapse; R51 Headache; R11.0 Nausea; Y04.0XXA Assault by unarmed brawl or fight, initial encounter; Z79.899 Other long term (current) drug therapy; F17.200 Nicotine dependence, unspecified, uncomplicated; I10 Essential (primary) hypertension
CPT/HCPCS: 99284; 70450; 70486; 72125; S0119

== ENCOUNTER 2019-11-06 03:39 | Emergency (ER) | payer SELFPAY ==
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
[2019-11-06 04:16] LABS: ABSOLUTE EOSINOPHILS # (AUTO) 0.1 10^3/uL (0.0-0.6); ABSOLUTE LYMPHOCYTES (AUTO) 2.2 10^3/uL (0.5-4.7); ABSOLUTE MONOCYTES (AUTO) 0.7 10^3/uL (0.1-1.4); BASOPHILS % (AUTO) 0.4 % (0-2); EOSINOPHILS % (AUTO) 0.7 % (0-6); HEMATOCRIT 37.6 % (36.0-47.0); HEMOGLOBIN 13.3 g/dL (12.0-15.5); LYMPHOCYTES % (AUTO) 27.7 % (13-45); MEAN CORPUSCULAR HEMOGLOBIN 35.5 pg (27.0-33.4); MEAN CORPUSCULAR HGB CONC 35.3 g/dL (32.0-36.0); MEAN CORPUSCULAR VOLUME 101 fl (80-97); MONOCYTES % (AUTO) 8.3 % (3-13); PLATELET COUNT 343 10^3/uL (150-450); RED BLOOD COUNT 3.74 10^6/uL (3.72-5.28); RED CELL DISTRIBUTION WIDTH 13.2 % (11.5-14.0); SEGMENTED NEUTROPHILS % (AUTO) 62.9 % (42-78); TOTAL CELLS COUNTED % (AUTO) 100 %
[2019-11-06 04:32] LABS: ALBUMIN 4.8 g/dL (3.5-5.0); ALCOHOL 220 mg/dL (NONE DETECTED); ALKALINE PHOSPHATASE 53 U/L (38-126); ANION GAP 15 (5-19); ASPARTATE AMINO TRANSFERASE 37 U/L (14-36); BILIRUBIN,DIRECT 0.1 mg/dL (0.0-0.4); BILIRUBIN,TOTAL 0.3 mg/dL (0.2-1.3); BLOOD UREA NITROGEN 18 mg/dL (7-20); CARBON DIOXIDE 22 mmol/L (22-30); CHLORIDE 99 mmol/L (98-107); GLUCOSE 106 mg/dL (75-110); POTASSIUM 4.4 mmol/L (3.6-5.0); TOTAL PROTEIN 8.4 g/dL (6.3-8.2)
[2019-11-06 04:34] LABS: ACETAMINOPHEN < 10 ug/mL (10-30); SALICYLATE < 1.0 mg/dL (2.0-20.0)
[2019-11-06 04:44] LABS: CALCIUM 12.4 mg/dL (8.4-10.2)
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
--- NOTE | 2019-11-06 05:48 | RADIOLOGY REPORT (SQ) ---
CLINICAL HISTORY: fall, pain COMPARISON: None. TECHNIQUE: XR KNEE 4 OR MORE VIEWS 11/06/2019 3:54 AM COMPUTING TUTOR FINDINGS: There is no fracture. Joint spaces are preserved. Soft tissues are unremarkable. IMPRESSION: No acute osseous findings.
[2019-11-06] MEDS ORDERED: NORMAL SALINE 1000 ML 1,000 ML IV ONE ×2 (06:32→09:40)
[2019-11-06 07:47] LABS: APPEARANCE,URINE CLEAR; BILIRUBIN,URINE NEGATIVE (NEGATIVE); COLOR,URINE STRAW; GLUCOSE, URINE NEGATIVE (NEGATIVE); KETONES,URINE NEGATIVE (NEGATIVE); LEUKOCYTE ESTERASE,URINE NEGATIVE (NEGATIVE); NITRITE,URINE NEGATIVE (NEGATIVE); PROTEIN,URINE NEGATIVE (NEGATIVE); URINE SPECIFIC GRAVITY 1.004; UROBILINOGEN,URINE NEGATIVE mg/dL (<2.0)
[2019-11-06 08:09] LABS: URINE AMPHETAMINES SCREEN NEGATIVE; URINE BARBITURATES SCREEN NEGATIVE; URINE BENZODIAZEPINES SCREEN NEGATIVE; URINE COCAINE SCREEN NEGATIVE; URINE MARIJUANA (THC) SCREEN NEGATIVE; URINE METHADONE SCREEN NEGATIVE; URINE PHENCYCLIDINE SCREEN NEGATIVE
[2019-11-06 09:32] LABS: ANION GAP 12 (5-19); BLOOD UREA NITROGEN 17 mg/dL (7-20); CALCIUM 11.6 mg/dL (8.4-10.2); CARBON DIOXIDE 23 mmol/L (22-30); CHLORIDE 103 mmol/L (98-107); GLUCOSE 111 mg/dL (75-110); POTASSIUM 3.8 mmol/L (3.6-5.0)
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
[2019-11-06 20:30] VITALS: BP 134/76
== END 2019-11-06 20:31 ==
LOC: ER 03:39
PROC: 2W3CX1Z Immobilization of Right Lower Arm using Splint (ICD-10-PCS; principal; 2019-11-06)
DX: S61.210A Laceration without foreign body of right index finger without damage to nail, initial encounter (principal); S52.601A Unspecified fracture of lower end of right ulna, initial encounter for closed fracture; S09.90XA Unspecified injury of head, initial encounter; R45.851 Suicidal ideations; F10.929 Alcohol use, unspecified with intoxication, unspecified; F14.10 Cocaine abuse, uncomplicated; F15.10 Other stimulant abuse, uncomplicated; X99.9XXA Assault by unspecified sharp object, initial encounter; Z88.1 Allergy status to other antibiotic agents; I10 Essential (primary) hypertension
CPT/HCPCS: 99285; 96360; 96361; 36415; 80307 ×4; 84703; 85025; 80053; 81001; 73130; 73564; 70450; 72125; 29125; J7030

== ENCOUNTER → 2020-07-04 | Outpatient (CLI) | payer OTHER ==
[2020-07-04 14:16] LABS: APPEARANCE,URINE CLEAR; BILIRUBIN,URINE NEGATIVE (NEGATIVE); COLOR,URINE YELLOW; GLUCOSE, URINE NEGATIVE (NEGATIVE); KETONES,URINE NEGATIVE (NEGATIVE); LEUKOCYTE ESTERASE,URINE NEGATIVE (NEGATIVE); NITRITE,URINE NEGATIVE (NEGATIVE); PROTEIN,URINE NEGATIVE (NEGATIVE); URINE SPECIFIC GRAVITY 1.011; UROBILINOGEN,URINE NEGATIVE mg/dL (<2.0)
[2020-07-04 14:18] LABS: ABSOLUTE BASOPHILS # (AUTO) 0.1 10^3/uL (0.0-0.2); ABSOLUTE EOSINOPHILS # (AUTO) 0.1 10^3/uL (0.0-0.6); ABSOLUTE LYMPHOCYTES (AUTO) 1.8 10^3/uL (0.5-4.7); ABSOLUTE MONOCYTES (AUTO) 0.5 10^3/uL (0.1-1.4); ABSOLUTE NEUT (AUTO) 3.2 10^3/uL (1.7-8.2); BASOPHILS % (AUTO) 1.1 % (0-2); EOSINOPHILS % (AUTO) 2.2 % (0-6); HEMATOCRIT 36.7 % (36.0-47.0); HEMOGLOBIN 12.5 g/dL (12.0-15.5); LYMPHOCYTES % (AUTO) 31.9 % (13-45); MEAN CORPUSCULAR HEMOGLOBIN 37.9 pg (27.0-33.4); MEAN CORPUSCULAR HGB CONC 34.2 g/dL (32.0-36.0); MONOCYTES % (AUTO) 8.4 % (3-13); PLATELET COUNT 343 10^3/uL (150-450); RED BLOOD COUNT 3.31 10^6/uL (3.72-5.28); RED CELL DISTRIBUTION WIDTH 15.5 % (11.5-14.0); SEGMENTED NEUTROPHILS % (AUTO) 56.4 % (42-78); TOTAL CELLS COUNTED % (AUTO) 100 %; WHITE BLOOD COUNT 5.7 10^3/uL (4.0-10.5)
[2020-07-04 14:22] LABS: MEAN CORPUSCULAR VOLUME 111 fl (80-97)
[2020-07-04 14:33] LABS: ALBUMIN 4.3 g/dL (3.5-5.0); ALKALINE PHOSPHATASE 63 U/L (38-126); ANION GAP 10 (5-19); ASPARTATE AMINO TRANSFERASE 87 U/L (14-36); BILIRUBIN,DIRECT 0.3 mg/dL (0.0-0.4); BILIRUBIN,TOTAL 0.4 mg/dL (0.2-1.3); BLOOD UREA NITROGEN 9 mg/dL (7-20); CARBON DIOXIDE 22 mmol/L (22-30); CHLORIDE 106 mmol/L (98-107); CHOLESTEROL 221.07 mg/dL (0-200); GLUCOSE 82 mg/dL (75-110); POTASSIUM 4.7 mmol/L (3.6-5.0); TOTAL PROTEIN 7.4 g/dL (6.3-8.2); TRIGLYCERIDES 220 mg/dL (<150)
[2020-07-04 14:44] LABS: DIRECT LDL 139 mg/dL (<100)
[2020-07-04 14:55] LABS: ANISOCYTOSIS SLIGHT
[2020-07-04 14:56] LABS: PLATELET COMMENT ADEQUATE; PLATELET LARGE PRESENT
[2020-07-04 14:59] LABS: POLYCHROMASIA SLIGHT
[2020-07-04 15:11] LABS: CALCIUM 11.9 mg/dL (8.4-10.2)
[2020-07-07 14:05] LABS: PATH REVIEW PATHOLOGIST REVIEWED
== END ==
LOC: CCC 13:03
PROVIDERS: ATTEND Family Medicine
DX: Z13.9 Encounter for screening, unspecified (principal)
CPT/HCPCS: 36415; 80053; 80061; 81001; 83036; 84443; 85025

== ENCOUNTER 2020-07-22 23:31 | Emergency (ER) | payer SELFPAY ==
--- NOTE | 2020-07-23 01:13 | ER Document Report ---
ED Medical Screen (RME) - General Chief Complaint: Knee Pain Stated Complaint: ABDOMINAL LAB VALVES Time Seen by Provider: 07/23/20 01:08 Primary Care Provider: MICHAEL ASHLEY [Primary Care Provider] - Follow up as needed Notes: Patient is a 50-year-old female comes emergency room with multiple somatic complaints. Patient states that she sees Dr. Alejandre who is sent her to the emergency room because she has been recently diagnosed with hypercalcemia and hyperparathyroidism. Patient states that she has aches and pains all over her body but primarily her right knee and left arm. She also has a history of hypertension depression, bipolar disease and alcohol use. Patient also is a smoker. She states he drinks between 4-5 beers almost every day but mostly 4-5 times a week. Patient states that she has been sent here by Dr. Alejandre for evaluation of her hypercalcemia and for intervention to be done. Physical examination: Patient is a well-nourished well-developed 62-year-old female is in no apparent distress on examination tonight. Patient is very histrionic and has multiple complaints to include right knee pain left elbow pain and all body pains. Next line cardiac: Patient has a regular rate and rhythm without any murmurs. Lungs: Bilateral breath sounds breath sounds increased clear auscultation. Abdomen: Bowel sounds present all 4 quads nontender to palpate. Next Lower extremities. Examination patient's right knee in a sitting position does not show any laxity in any direction. She has good distal pulses on the right foot. Further examination shows there to be no crepitus felt with passive range of motion in a sitting position. Upper extremity right elbow. Again no notable swelling or edema to the right elbow full range of motion is noted no crepitus is felt. Distal pulses are normal. I have greeted and performed a rapid initial assessment of this patient. A comprehensive ED assessment and evaluation of the patient, analysis of test results and completion of the medical decision making process will be conducted by additional ED providers. Dictation of this chart was performed using voice recognition software; therefore, there may be some unintended grammatical err ors. TRAVEL OUTSIDE OF THE [place] IN LAST 30 DAYS: No - Related Data Allergies/Adverse Reactions: erythromycin base [Erythromycin Base] Allergy (Verified 07/23/20 00:05) Past Medical History - Social History Frequency of alcohol use: Heavy Drug Abuse: None - Past Medical History Cardiac Medical History: Reports: Hx Hypertension - has not taken meds in months Neurological Medical History: Reports: Hx Migraine Renal/ Medical History: Denies: Hx Peritoneal Dialysis Musculoskeltal Medical History: Reports Hx Arthritis Psychiatric Medical History: Reports: Hx Depression - Immunizations Immunizations up to date: Yes Hx Diphtheria, Pertussis, Tetanus Vaccination: Yes Physical Exam - Vital signs Vitals: Temp Pulse Resp BP Pulse Ox 98.9 F 87 16 105/62 96 07/22/20 23:58 07/22/20 23:58 07/22/20 23:58 07/22/20 23:58 07/22/20 23:58 Course - Vital Signs Vital signs: Temp Pulse Resp BP Pulse Ox 98.9 F 87 16 105/62 96 07/22/20 23:58 07/22/20 23:58 07/22/20 23:58 07/22/20 23:58 07/22/20 23:58 Doctor's Discharge - Discharge Referrals: [facility] [Primary Care Provider] - Follow up as needed
[2020-07-23 02:43] LABS: APPEARANCE,URINE CLEAR; BILIRUBIN,URINE NEGATIVE (NEGATIVE); COLOR,URINE YELLOW; GLUCOSE, URINE NEGATIVE (NEGATIVE); KETONES,URINE NEGATIVE (NEGATIVE); LEUKOCYTE ESTERASE,URINE NEGATIVE (NEGATIVE); NITRITE,URINE NEGATIVE (NEGATIVE); PROTEIN,URINE NEGATIVE (NEGATIVE); URINE SPECIFIC GRAVITY 1.004; UROBILINOGEN,URINE NEGATIVE mg/dL (<2.0)
[2020-07-23 02:56] LABS: URINE AMPHETAMINES SCREEN NEGATIVE; URINE BARBITURATES SCREEN NEGATIVE; URINE BENZODIAZEPINES SCREEN NEGATIVE; URINE COCAINE SCREEN NEGATIVE; URINE MARIJUANA (THC) SCREEN NEGATIVE; URINE METHADONE SCREEN NEGATIVE; URINE PHENCYCLIDINE SCREEN NEGATIVE
[2020-07-23 02:58] LABS: ALBUMIN 4.5 g/dL (3.5-5.0); ALCOHOL 253 mg/dL (NONE DETECTED); ALKALINE PHOSPHATASE 58 U/L (38-126); ANION GAP 12 (5-19); ASPARTATE AMINO TRANSFERASE 90 U/L (14-36); BILIRUBIN,DIRECT 0.2 mg/dL (0.0-0.4); BILIRUBIN,TOTAL 0.4 mg/dL (0.2-1.3); BLOOD UREA NITROGEN 9 mg/dL (7-20); CARBON DIOXIDE 23 mmol/L (22-30); CHLORIDE 105 mmol/L (98-107); GLUCOSE 92 mg/dL (75-110); POTASSIUM 4.3 mmol/L (3.6-5.0); TOTAL PROTEIN 7.9 g/dL (6.3-8.2)
[2020-07-23 03:04] LABS: ABSOLUTE BASOPHILS # (AUTO) 0.1 10^3/uL (0.0-0.2); ABSOLUTE EOSINOPHILS # (AUTO) 0.2 10^3/uL (0.0-0.6); ABSOLUTE LYMPHOCYTES (AUTO) 2.6 10^3/uL (0.5-4.7); ABSOLUTE MONOCYTES (AUTO) 0.4 10^3/uL (0.1-1.4); ABSOLUTE NEUT (AUTO) 3.8 10^3/uL (1.7-8.2); BASOPHILS % (AUTO) 0.8 % (0-2); EOSINOPHILS % (AUTO) 2.2 % (0-6); HEMATOCRIT 39.5 % (36.0-47.0); HEMOGLOBIN 13.6 g/dL (12.0-15.5); MEAN CORPUSCULAR HEMOGLOBIN 38.4 pg (27.0-33.4); MEAN CORPUSCULAR HGB CONC 34.5 g/dL (32.0-36.0); MEAN CORPUSCULAR VOLUME 111 fl (80-97); MONOCYTES % (AUTO) 5.3 % (3-13); PLATELET COUNT 292 10^3/uL (150-450); RED BLOOD COUNT 3.54 10^6/uL (3.72-5.28); RED CELL DISTRIBUTION WIDTH 13.9 % (11.5-14.0); SEGMENTED NEUTROPHILS % (AUTO) 54.7 % (42-78); TOTAL CELLS COUNTED % (AUTO) 100 %
[2020-07-23 03:05] LABS: CALCIUM 11.7 mg/dL (8.4-10.2)
[2020-07-23 03:10] LABS: STOMATOCYTES SLIGHT
[2020-07-23 03:11] LABS: PLATELET COMMENT ADEQUATE
[2020-07-23] MEDS ORDERED: NORMAL SALINE 1000 ML 1,000 ML IV ONE (08:27)
--- NOTE | 2020-07-23 09:22 | ER Document Report ---
ED General - General Chief Complaint: Knee Pain Stated Complaint: ABDOMINAL LAB VALVES Time Seen by Provider: 07/23/20 01:08 Primary Care Provider: [facility],MICHAEL [NO LOCAL MD] - Follow up as needed Notes: HPI: 50-year-old female who presents today stating that she has some body aches and was told by her primary care physician at the [facility] Dr. Alejandre to come to be evaluated secondary to an increased calcium. Patient admits to drinking alcohol which is a chronic problem that she faces. Patient states pain to multiple joints. She denies any trauma or fever. No calf pain or leg swelling. No confusion, vomiting, weakness or numbness. Patient was admitted here in 2019 and diagnosed with an elevated calcium and hyperparathyroidism. She was supposed to follow-up with [facility] endocrinology and start a medication called Sensipar. States she has been unable to afford this medication. ROS: See HPI All other review of systems reviewed and otherwise negative Reviewed vital signs and nursing note as charted by RN. PHYSICAL EXAM: CONSTITUTIONAL: Alert and oriented and responds appropriately to questions. Well-appearing; well-nourished HEAD: Normocephalic; atraumatic EYES: PERRL; no nystagmus, sclerae non-icteric ENT: Normal nose; no rhinorrhea; moist mucous membranes; pharynx without lesions noted NECK: Supple without meningismus; non-tender; no cervical lymphadenopathy, no masses CARD: Regular rate and rhythm; no murmurs; symmetric distal pulses RESP: Normal chest excursion without splinting or tachypnea; breath sounds clear and equal bilaterally ABD/GI: Normal bowel sounds; non-distended; soft, non-tender; no palpable organomegaly or masses BACK: The back appears normal and is non-tender to palpation EXT: Normal ROM in all joints; non-tender to palpation with no obvious focal bruising or swelling; no edema SKIN: No acute lesions noted NEURO: CN 2-12 intact; 5/5 bilateral upper and lower extremity strength with sensation intact to light touch PSYCH: The patient's mood and manner are appropriate. Grooming and personal hygiene are appropriate. TRAVEL OUTSIDE OF THE [place] IN LAST 30 DAYS: No - Related Data Allergies/Adverse Reactions: erythromycin base [Erythromycin Base] Allergy (Verified 07/23/20 00:05) Past Medical History - Social History Smoking Status: Current Every Day Smoker Frequency of alcohol use: Heavy Drug Abuse: None Family History: Hypertension. denies: Malignancy - Past Medical History Cardiac Medical History: Reports: Hx Hypertension - has not taken meds in months Neurological Medical History: Reports: Hx Migraine Renal/ Medical History: Denies: Hx Peritoneal Dialysis Musculoskeletal Medical History: Reports Hx Arthritis Psychiatric Medical History: Reports: Hx Depression - Immunizations Immunizations up to date: Yes Hx Diphtheria, Pertussis, Tetanus Vaccination: Yes Physical Exam - Vital signs Vitals: Temp Pulse Resp BP Pulse Ox 98.9 F 87 16 105/62 96 07/22/20 23:58 07/22/20 23:58 07/22/20 23:58 07/22/20 23:58 07/22/20 23:58 Course - Re-evaluation Re-evalutation: 07/23/20 09:19 Given the history and physical examination, with a calcium at discharge in 2019 of 11.2, I will provide fluids both for the alcohol dehydration and for the calcium. Attempt to call Dr. Obando at the [facility]. 07/23/20 11:00 Patient has received fluids. No confusion, weakness or numbness. I attempted to call the [facility] but they are close secondary to very Tuesday. I have asked the patient to walk into the clinic tomorrow return here for further evaluation. She understands this. I do believe that the patient needs referral for discount endocrinology evaluation. Patient's calcium here appears to be what it was at discharge on initial diagnosis in 2019. - Vital Signs Vital signs: Temp Pulse Resp BP Pulse Ox 98.9 F 70 16 117/78 96 07/22/20 23:58 07/23/20 06:14 07/22/20 23:58 07/23/20 06:14 07/23/20 06:14 - Laboratory Result Diagrams: 07/23/20 01:40 07/23/20 01:40 Laboratory results interpreted by me: 07/23/20 07/23/20 01:40 01:40 RBC 3.54 L MCV 111 H MCH 38.4 H Calcium 11.7 H AST 90 H ALT 63 H Discharge - Discharge Clinical Impression: Hypercalcemia Alcohol intoxication Qualifiers: Complication of substance-induced condition: uncomplicated Qualified Code(s): F10.920 - Alcohol use, unspecified with intoxication, uncomplicated Condition: Good Disposition: HOME, SELF-CARE Additional Instructions: Please make sure you stop drinking alcohol and keep yourself well-hydrated. Pl ease make sure that you follow[facility]up with [facility] tomorrow as we have discussed for a referral and discounted endocrinology appointment. Come back immediately with any confusion, fevers, vomiting, increased aches or pains, or any other acute problems. Referrals: [facility] [NO LOCAL MD] - Follow up as needed
[2020-07-23 11:33] VITALS: BP 151/88
[2020-07-23 11:35] LABS: PATH REVIEW PATHOLOGIST REVIEWED
--- OUTSIDE RECORDS SUMMARY | 2020-07-24 18:03 | XMS REPORT ---
:1970 [facility] [address] [place] [address] Care Team Providers Name Role Phone Unavailable Unavailable Unavailable Allergies, Adverse Reactions, Alerts Allergy Name Allergy Status Severity Reaction(s) Onset Inactive Treat ing Comments Type Date Date Clinician Erythromycin Allergy to Active Hives Base substance Medications Ordered Filled Start Stop Current Ordering Indication Dosage Frequency Signature Comments Components Medication Medication Date Date Medication? Clinician (SIG) Name Name ibuprofen No 1 Q6H ibuprofen 200 mg 200 mg tablet Take tablet 1 tablet Take 1 every 6 tablet hours by every 6 oral route. hours by oral route. lisinopril No 1 Q1D lisinopril 20 mg 20 mg tablet Take tablet 1 tablet Take 1 every day tablet by oral every day route. by oral route. Sensipar 30 No 1 BID Sensipar mg tablet 30 mg Take 1 tablet tablet Take 1 twice a day tablet by oral twice a route. day by oral route. Taztia XT No 1capsul Q1D Taztia XT 240 mg e(s) 240 mg capsule,ext capsule,ex ended tended release release Take 1 Take 1 capsule capsule every day every day by oral by oral route as route as directed. directed. Problems Condition Condition Condition Status Onset Resolution Last Treatin g Comments Name Details Category Date Date Treatment Clinician Date Essential Essential Problem Active 2019-09 hypertensio Hypertensio 0-27 n n 00:00: 00 Procedures This patient has no known procedures. Results This patient has no known results. Encounters Start End Encounter Admission Attending Care Care Encounter Date/Time Date/Time Type Type Clinicians Facility Department ID 2020-07-09 2020-07-09 Carmelo Mendez [place] [id number] 00:00:00 00:00:00 MD [place]: [facility] [address] [place] [address], Ph. Social History Smoking Status Start Date Stop Date Light Tobacco Smoker Vital Signs Vital Name Observation Time Observation Value Comments Height 2020-07-09 00:00:00 65 [in_i] Hospital Discharge Instructions None recorded. Discussion Note: None recorded. Patient educational handouts: No information available.
== END 2020-07-23 11:33 | disposition home or self-care (01) ==
LOC: ER 23:31
DX: F10.920 Alcohol use, unspecified with intoxication, uncomplicated (principal); E83.52 Hypercalcemia; M79.10 Myalgia, unspecified site; F17.200 Nicotine dependence, unspecified, uncomplicated; I10 Essential (primary) hypertension; Z88.1 Allergy status to other antibiotic agents
CPT/HCPCS: 99284; 96360; 36415; 80307 ×2; 85025; 80053; 81001; J7030